=== PATIENT | female | born 1975 | race Caucasian/White ===

== ENCOUNTER 2019-03-16 17:12 | Emergency (ER) | payer MEDICAID ==
[2019-03-16] MEDS: IBUPROFEN 600 MG TAB PO (18:09)
== END 2019-03-16 19:30 | disposition home or self-care (01) ==
LOC: FTE 17:12
DX: J02.0 Streptococcal pharyngitis (principal); I10 Essential (primary) hypertension; L03.116 Cellulitis of left lower limb
CPT/HCPCS: 87880; 99283